=== PATIENT | male | born 1945 | race Caucasian/White ===

== ENCOUNTER 2019-07-14 08:40 | Emergency (ER) | payer BC, OTHER ==
[~2019-07-14] VITALS: Ht 172.7 cm; Wt 68.0 kg
[2019-07-14 09:12] VITALS: BP 118/75
== END 2019-07-14 11:28 | disposition home or self-care (01) ==
LOC: ER 08:40
DX: J20.9 Acute bronchitis, unspecified (principal)
CPT/HCPCS: 71046